=== PATIENT | male | born 1970 | race African-American/Black ===

== ENCOUNTER 2016-07-20 17:55 | Observation (INO) | payer MEDICAID, OTHER ==
[~2016-07-20] VITALS: Ht 180.3 cm; Wt 98.4 kg
[2016-07-20] MEDS ORDERED: FURO40TA5 PO (18:01)
[2016-07-20] MEDS ORDERED: ISOS30TA6 PO (18:01)
[2016-07-20] MEDS ORDERED: TAMS0.4C31 PO (18:01)
[2016-07-20] MEDS ORDERED: HYDR-4133 PO (18:01)
[2016-07-20] MEDS ORDERED: LISI10TA5 PO (18:01)
[2016-07-20 18:40] LABS: BASOPHILS % 0.7 % (0.0-2.0); HEMATOCRIT. 34.8 % (42.0-52.0); HEMOGLOBIN. 11.4 g/dL (14.0-18.0); LYMPHOCYTES % 21.6 % (20.0-50.0); MEAN CORPUSCULAR HEMOGLOBIN 27.8 pg (28.0-32.0); MEAN CORPUSCULAR HGB CONC 32.8 g/dL (31.0-37.0); MEAN CORPUSCULAR VOLUME 84.9 fL (80.0-94.0); MONOCYTES % 7.9 % (2.0-8.0); NEUTROPHILS % 63.8 % (40.0-76.0); PLATELET 140 x1000/uL (130-400); RED CELL DISTRIBUTION WIDTH 16.1 % (11.6-14.6); WHITE BLOOD COUNT 4.3 x1000/uL (4.5-11.0)
[2016-07-20 18:45] LABS: INR 1.1; PROTHROMBIN TIME 11.3 sec
[2016-07-20 18:54] LABS: TROPONIN I < 0.02 ng/mL (0.00-0.04)
[2016-07-20 18:55] LABS: ALANINE AMINOTRANSFERASE 10 IU/L (13-61); ALBUMIN 3.7 g/dL (3.4-5.0); ANION GAP 17; CARBON DIOXIDE 30 mEq/L (21-32); CHLORIDE 99 mEq/L (98-107); INDEX HEMOLYSI 1 (1-3); INDEX ICTERIC 1 (1-4); INDEX LIPEMIC 2 (1-3); MAGNESIUM 2.5 mg/dL (1.8-2.4); UREA NITROGEN BLOOD 46 mg/dL (7-21); eGFR 6 mL/min (>60)
[2016-07-20 18:56] LABS: NT PRO B-TYPE NATRIURETIC PEP 1395 pg/mL (5-125)
[2016-07-20] MEDS ORDERED: SODIUM POLYSTYRENE SULFONATE 15 G/60 ML BOT PO NR (20:00)
[2016-07-21] VITALS (7 sets, daily range): BP systolic 105–124; BP diastolic 68–86
[2016-07-21 00:39] LABS: *AMPHETAMINES SCREEN URINE NEGATIVE (NEGATIVE); *BARBITURATES SCREEN URINE NEGATIVE (NEGATIVE); *BENZODIAZEPINES SCREEN URINE NEGATIVE (NEGATIVE); *COCAINE SCREEN URINE NEGATIVE (NEGATIVE); CANNABINOID URINE SCREEN NEGATIVE (NEGATIVE); ECSTASY MDMA SCREEN URINE NEGATIVE (NEGATIVE); METHADONE URINE SCREEN NEGATIVE (NEGATIVE); OPIATES URINE SCREEN NEGATIVE (NEGATIVE); PHENCYCLIDINE URINE SCREEN NEGATIVE (NEGATIVE)
[2016-07-21] MEDS ORDERED: ACETAMINOPHEN 325MG TABLET PO PRN (02:00)
[2016-07-21] MEDS ORDERED: BENA20TA3 PO (02:08)
[2016-07-21 03:38] LABS: CREATINE KINASE 87 IU/L (39-308); CREATINE KINASE MB FRACTION < 0.5 ng/mL (0.5-3.6); INDEX HEMOLYSI 2 (1-3); TROPONIN I < 0.02 ng/mL (0.00-0.04)
[2016-07-21] MEDS ORDERED: HEPARIN 5000 UNITS/ML VIAL SUBCUT SCH (09:00)
[2016-07-21] MEDS ORDERED: ISOSORBIDE MONONITRATE 60MG TABLET SR 24HR PO SCH (09:00)
[2016-07-21] MEDS ORDERED: TAMSULOSIN HCL 0.4MG SR CAPSULE PO SCH (09:00)
[2016-07-21] MEDS ORDERED: FUROSEMIDE 40MG TABLET PO SCH (09:00)
[2016-07-21] MEDS ORDERED: METOPROLOL TARTRATE 25MG TABLET PO SCH (09:00)
[2016-07-21] MEDS ORDERED: HYDRALAZINE HCL 50MG TABLET PO SCH (09:00)
[2016-07-21] MEDS ORDERED: BENAZEPRIL 20MG TABLET PO SCH (09:00)
[2016-07-21 11:03] LABS: CREATINE KINASE 88 IU/L (39-308); CREATINE KINASE MB FRACTION < 0.5 ng/mL (0.5-3.6); INDEX HEMOLYSI 1 (1-3); TROPONIN I < 0.02 ng/mL (0.00-0.04)
[2016-07-21 18:33] LABS: CREATINE KINASE 91 IU/L (39-308); CREATINE KINASE MB FRACTION < 0.5 ng/mL (0.5-3.6); INDEX HEMOLYSI 1 (1-3); TROPONIN I < 0.02 ng/mL (0.00-0.04)
== END 2016-07-21 21:30 | disposition home or self-care (01) ==
LOC: ER 17:55 → INTOOBSV 20:10 → 7WST 20:10
PROVIDERS: ADMIT Internal Medicine; ATTEND Internal Medicine
DX: I13.2 Hypertensive heart and chronic kidney disease with heart failure and with stage 5 chronic kidney disease, or end stage renal disease (principal); T82.897A Other specified complication of cardiac prosthetic devices, implants and grafts, initial encounter; I25.10 Atherosclerotic heart disease of native coronary artery without angina pectoris; I50.22 Chronic systolic (congestive) heart failure; D64.9 Anemia, unspecified; E87.5 Hyperkalemia; I42.9 Cardiomyopathy, unspecified; I27.2 Other secondary pulmonary hypertension; Z95.810 Presence of automatic (implantable) cardiac defibrillator; Z99.2 Dependence on renal dialysis; Z95.0 Presence of cardiac pacemaker; Y71.2 Prosthetic and other implants, materials and accessory cardiovascular devices associated with adverse incidents; Y92.89 Other specified places as the place of occurrence of the external cause; Y93.89 Activity, other specified; Y99.8 Other external cause status
CPT/HCPCS: 36415; 71010; 80053; 80305; 82550; 82553; 83735; 83880; 84484; 85025; 85610; 93005; 96372; 99285; G0378; J1644; J7030

== ENCOUNTER 2019-06-10 20:27 | Inpatient (IN) | payer MEDICARE, OTHER ==
[~2019-06-10] VITALS: Ht 173.5 cm; Wt 90.7 kg
[~2019-06-10 20:27] MED LIST: BENA20TA10 PO; FURO40TA5 PO; HYDR-4133 PO; ISOS30TA6 PO; TAMS0.4C31 PO
[2019-06-11] VITALS (71 sets, daily range): BP systolic 93–196; BP diastolic 46–120
[2019-06-11] MEDS ORDERED: IPRATROPIUM BROMIDE (0.02%) 0.5MG/2.5ML NEB HHN STA (00:55)
[2019-06-11] MEDS ORDERED: MORPHINE SULFATE 4 MG/ML CPJ (NOT FOR IM USE) IV STA (00:55)
[2019-06-11] MEDS ORDERED: ALBUTEROL (0.083%) 2.5MG/3ML NEB HHN STA (00:55)
[2019-06-11] MEDS ORDERED: ONDANSETRON HCL 4MG/2ML INJ IV ONE (01:00)
[2019-06-11] MEDS ORDERED: HYDRALAZINE 20MG/ML VIAL IV ONE (01:15)
[2019-06-11] MEDS ORDERED: LORAZEPAM 2MG/ML CPJ ONE ×2 (01:29→01:41)
[2019-06-11] MEDS ORDERED: PROPOFOL 10MG/ML 100ML 100 ML IV SCH (01:30)
[2019-06-11] MEDS ORDERED: LORAZEPAM 2MG/ML CPJ IV ONE ×2 (01:30→01:45)
[2019-06-11] MEDS ORDERED: NITROGLYCERIN 50MG PREMIX 250 ML IV ONE ×2 (01:40→01:45)
[2019-06-11 02:17] LABS: BG BASE EXCESS -8.6 mmol/L (-2.0-2.0); BG CARBOXYHEMOGLOBIN 0.4 % (0.5-1.5); BG DEOXYHEMOGLOBIN 29.7 % (0.0-5.0); BG FRACTION INSPIRED OXYGEN 100; BG HCO3 ACT 20.4 mmol/L (22.0-26.0); BG METHEMOGLOBIN 0.3 % (0.0-1.5); BG OXYGEN SATURATION 70.1 % (92.0-98.5); BG OXYHEMOGLOBIN 69.6 % (94.0-97.0); BG PCO2 57.2 mmHg (35.0-45.0); BG PH 7.171 (7.350-7.450); BG PO2 46.3 mmHg (75.0-100.0); BG SAMPLE SITE RIGHT RADIAL; BG TIDAL VOLUME(mL) 550 mL; BG TOTAL HEMOGLOBIN 13.6 g/dL (12.0-18.0); BG VENT MODE VENT - A/C; BG VENT RATE 14 set
[2019-06-11 02:54] LABS: HEMATOCRIT. 36.9 % (42.0-52.0); HEMOGLOBIN. 12.2 g/dL (14.0-18.0); MEAN CORPUSCULAR HEMOGLOBIN 26.3 pg (28.0-32.0); MEAN CORPUSCULAR VOLUME 79.3 fL (80.0-94.0); MEAN PLATELET VOLUME 9.6 fl (7.4-10.4); PLATELET 162 x1000/uL (130-400); RED BLOOD CELL COUNT 4.66 mill/uL (4.7-6.1); RED CELL DISTRIBUTION WIDTH 17.4 % (11.6-14.6)
[2019-06-11] MEDS ORDERED: LEVOFLOXACIN 500MG PREMIX 100 ML IV SCH (03:00)
[2019-06-11 03:07] LABS: CHLORIDE 97 mEq/L (98-107)
[2019-06-11] MEDS ORDERED: ASPIRIN 300MG SUPP PR ONE (03:30)
[2019-06-11] MEDS ORDERED: MIDAZOLAM HCL 50 MG in DEXTROSE 5% WATER 40 ML IV ONE (04:45)
[2019-06-11 05:03] LABS: PLATELET ESTIMATE NORMAL
[2019-06-11] MEDS ORDERED: MIDAZOLAM HCL 50 MG in DEXTROSE 5% WATER 40 ML IV SCH (05:30)
[2019-06-11] MEDS: PROPOFOL 10MG/ML 100ML 100 ML IV PRN ×3 (11:44→20:21)
[2019-06-11 12:13] LABS: BG BASE EXCESS 0.8 mmol/L (-2.0-2.0); BG CARBOXYHEMOGLOBIN 0.3 % (0.5-1.5); BG DEOXYHEMOGLOBIN 8.2 % (0.0-5.0); BG FRACTION INSPIRED OXYGEN 100; BG HCO3 ACT 23.5 mmol/L (22.0-26.0); BG METHEMOGLOBIN 0.2 % (0.0-1.5); BG OXYGEN SATURATION 91.8 % (92.0-98.5); BG OXYHEMOGLOBIN 91.3 % (94.0-97.0); BG PCO2 31.7 mmHg (35.0-45.0); BG PH 7.488 (7.350-7.450); BG PO2 59.7 mmHg (75.0-100.0); BG SAMPLE SITE RIGHT BRACHIAL; BG TIDAL VOLUME(mL) 550 mL; BG TOTAL HEMOGLOBIN 12.9 g/dL (12.0-18.0); BG VENT MODE VENT - A/C; BG VENT RATE 18 set
[2019-06-11] MEDS ORDERED: IPRATROPIUM/ALBUTEROL 0.5-3(2.5)MG/3ML NEB HHN PRN (16:00)
[2019-06-11] MEDS: CARVEDILOL 12.5MG TABLET PO SCH ×2 (16:30→20:20)
[2019-06-11] MEDS: ENOXAPARIN 40MG/0.4ML SYR SUBCUT SCH (16:30)
[2019-06-11] MEDS ORDERED: NITROGLYCERIN 50MG PREMIX 250 ML IV PRN (20:00)
[2019-06-11] MEDS: IPRATROPIUM BROMIDE (0.02%) 0.5MG/2.5ML NEB HHN SCH (20:25)
[2019-06-11] MEDS ORDERED: ACETAMINOPHEN 650MG SUPP PR PRN (20:45)
[2019-06-11] MEDS: NITROGLYCERIN 50MG PREMIX 250 ML IV PRN (20:53)
[2019-06-12] VITALS (72 sets, daily range): BP systolic 97–209; BP diastolic 50–133
[2019-06-12] MEDS: IPRATROPIUM BROMIDE (0.02%) 0.5MG/2.5ML NEB HHN SCH ×7 (00:12→23:51)
[2019-06-12 05:51] LABS: BASOPHILS % 0.5 % (0.0-2.0); EOSINOPHILS % 0.3 % (0.0-5.0); HEMATOCRIT. 30.5 % (42.0-52.0); HEMOGLOBIN. 10.3 g/dL (14.0-18.0); LYMPHOCYTES % 18.8 % (20.0-50.0); MEAN CORPUSCULAR HEMOGLOBIN 26.6 pg (28.0-32.0); MEAN CORPUSCULAR VOLUME 78.5 fL (80.0-94.0); MEAN PLATELET VOLUME 9.9 fl (7.4-10.4); MONOCYTES % 9.3 % (2.0-8.0); NEUTROPHILS % 71.1 % (40.0-76.0); PLATELET 166 x1000/uL (130-400); RED BLOOD CELL COUNT 3.89 mill/uL (4.7-6.1); RED CELL DISTRIBUTION WIDTH 17.7 % (11.6-14.6)
[2019-06-12] MEDS: PANTOPRAZOLE SODIUM 40 MG/VIAL IV SCH (08:16)
[2019-06-12] MEDS: CARVEDILOL 12.5MG TABLET PO SCH ×2 (08:16→21:00)
[2019-06-12] MEDS: PROPOFOL 10MG/ML 100ML 100 ML IV PRN ×4 (08:19→22:36)
[2019-06-12 08:30] LABS: BG BASE EXCESS -2.7 mmol/L (-2.0-2.0); BG CARBOXYHEMOGLOBIN 0.3 % (0.5-1.5); BG DEOXYHEMOGLOBIN 1.2 % (0.0-5.0); BG FRACTION INSPIRED OXYGEN 100; BG HCO3 ACT 21.6 mmol/L (22.0-26.0); BG METHEMOGLOBIN 0.3 % (0.0-1.5); BG OXYGEN SATURATION 98.8 % (92.0-98.5); BG OXYHEMOGLOBIN 98.2 % (94.0-97.0); BG PCO2 35.9 mmHg (35.0-45.0); BG PH 7.398 (7.350-7.450); BG PO2 185.1 mmHg (75.0-100.0); BG SAMPLE SITE RIGHT RADIAL; BG TIDAL VOLUME(mL) 550 mL; BG TOTAL HEMOGLOBIN 10.3 g/dL (12.0-18.0); BG VENT MODE VENT - A/C; BG VENT RATE 18 set
[2019-06-12] MEDS ORDERED: SODIUM BICARBONATE 8.4% 1 MEQ/ML 50ML SYR IV NR (08:55)
[2019-06-12] MEDS ORDERED: DEXTROSE 50% WATER 50ML SYRINGE IV NR (08:55)
[2019-06-12] MEDS ORDERED: INSULIN REGULAR (HUMULIN R) 300UNITS/3ML IV NR (09:04)
[2019-06-12] MEDS: HYDRALAZINE HCL 50MG TABLET PO SCH ×2 (09:13→17:51)
[2019-06-12] MEDS: FENTANYL CITRATE/PF 500 MCG in SODIUM CHLORIDE 0.9% 40 ML IV PRN ×2 (11:52→20:34)
[2019-06-12] MEDS: HYDRALAZINE 20MG/ML VIAL IV PRN (15:36)
[2019-06-12] MEDS: ENOXAPARIN 40MG/0.4ML SYR SUBCUT SCH (17:51)
[2019-06-13] VITALS (45 sets, daily range): BP systolic 92–213; BP diastolic 51–126
[2019-06-13] MEDS: HYDRALAZINE HCL 50MG TABLET PO SCH ×3 (01:16→17:00)
[2019-06-13] MEDS: FENTANYL CITRATE/PF 500 MCG in SODIUM CHLORIDE 0.9% 40 ML IV PRN ×4 (01:16→18:53)
[2019-06-13] MEDS: IPRATROPIUM BROMIDE (0.02%) 0.5MG/2.5ML NEB HHN SCH ×2 (03:31→08:31)
[2019-06-13] MEDS: PROPOFOL 10MG/ML 100ML 100 ML IV PRN (05:21)
[2019-06-13 05:57] LABS: BASOPHILS % 0.6 % (0.0-2.0); EOSINOPHILS % 3.5 % (0.0-5.0); HEMATOCRIT. 30.7 % (42.0-52.0); HEMOGLOBIN. 10.3 g/dL (14.0-18.0); LYMPHOCYTES % 14.3 % (20.0-50.0); MEAN CORPUSCULAR HEMOGLOBIN 26.4 pg (28.0-32.0); MEAN CORPUSCULAR VOLUME 78.6 fL (80.0-94.0); MEAN PLATELET VOLUME 9.7 fl (7.4-10.4); MONOCYTES % 9.3 % (2.0-8.0); NEUTROPHILS % 72.3 % (40.0-76.0); PLATELET 166 x1000/uL (130-400); RED BLOOD CELL COUNT 3.91 mill/uL (4.7-6.1); RED CELL DISTRIBUTION WIDTH 17.5 % (11.6-14.6)
[2019-06-13] MEDS: HYDRALAZINE 20MG/ML VIAL IV PRN (06:15)
[2019-06-13] MEDS: NITROGLYCERIN 50MG PREMIX 250 ML IV PRN (06:55)
[2019-06-13 08:11] LABS: BG CARBOXYHEMOGLOBIN 0.6 % (0.5-1.5); BG DEOXYHEMOGLOBIN 7.8 % (0.0-5.0); BG FRACTION INSPIRED OXYGEN 45; BG HCO3 ACT 21.8 mmol/L (22.0-26.0); BG METHEMOGLOBIN 0.3 % (0.0-1.5); BG OXYGEN SATURATION 92.1 % (92.0-98.5); BG OXYHEMOGLOBIN 91.3 % (94.0-97.0); BG PCO2 38.3 mmHg (35.0-45.0); BG PH 7.374 (7.350-7.450); BG PO2 66.7 mmHg (75.0-100.0); BG SAMPLE SITE RIGHT BRACHIAL; BG TIDAL VOLUME(mL) 550 mL; BG TOTAL HEMOGLOBIN 13.2 g/dL (12.0-18.0); BG VENT MODE VENT - A/C; BG VENT RATE 18 set
[2019-06-13] MEDS: MIDAZOLAM HCL 50 MG in DEXTROSE 5% WATER 40 ML IV PRN ×3 (08:44→14:34)
[2019-06-13] MEDS: PANTOPRAZOLE SODIUM 40 MG/VIAL IV SCH (09:03)
[2019-06-13] MEDS: CARVEDILOL 12.5MG TABLET PO SCH ×2 (09:04→21:26)
[2019-06-13] MEDS: IPRATROPIUM/ALBUTEROL 0.5-3(2.5)MG/3ML NEB HHN SCH ×3 (12:35→20:41)
[2019-06-13] MEDS ORDERED: SODIUM POLYSTYRENE SULFONATE 15 G/60 ML BOT PO NR (13:00)
[2019-06-13] MEDS: ENOXAPARIN 40MG/0.4ML SYR SUBCUT SCH (17:00)
[2019-06-14] VITALS (47 sets, daily range): BP systolic 115–183; BP diastolic 66–167
[2019-06-14] MEDS: IPRATROPIUM/ALBUTEROL 0.5-3(2.5)MG/3ML NEB HHN SCH ×6 (00:05→19:52)
[2019-06-14] MEDS: MIDAZOLAM HCL 50 MG in DEXTROSE 5% WATER 40 ML IV PRN ×2 (00:24→06:24)
[2019-06-14] MEDS: FENTANYL CITRATE/PF 500 MCG in SODIUM CHLORIDE 0.9% 40 ML IV PRN ×2 (02:29→10:54)
[2019-06-14] MEDS: HYDRALAZINE HCL 50MG TABLET PO SCH ×3 (02:32→17:34)
[2019-06-14 06:42] LABS: BASOPHILS % 0.4 % (0.0-2.0); EOSINOPHILS % 5.9 % (0.0-5.0); HEMATOCRIT. 30.2 % (42.0-52.0); HEMOGLOBIN. 10.2 g/dL (14.0-18.0); LYMPHOCYTES % 14.6 % (20.0-50.0); MEAN CORPUSCULAR HEMOGLOBIN 26.6 pg (28.0-32.0); MEAN CORPUSCULAR VOLUME 78.8 fL (80.0-94.0); MEAN PLATELET VOLUME 9.5 fl (7.4-10.4); MONOCYTES % 7.9 % (2.0-8.0); NEUTROPHILS % 71.2 % (40.0-76.0); PLATELET 173 x1000/uL (130-400); RED BLOOD CELL COUNT 3.83 mill/uL (4.7-6.1)
[2019-06-14] MEDS: PANTOPRAZOLE SODIUM 40 MG/VIAL IV SCH (08:58)
[2019-06-14] MEDS: CARVEDILOL 12.5MG TABLET PO SCH ×2 (08:58→21:16)
[2019-06-14 09:00] LABS: BG BASE EXCESS -2.6 mmol/L (-2.0-2.0); BG CARBOXYHEMOGLOBIN 0.3 % (0.5-1.5); BG DEOXYHEMOGLOBIN 7.2 % (0.0-5.0); BG FRACTION INSPIRED OXYGEN 40; BG HCO3 ACT 22.5 mmol/L (22.0-26.0); BG METHEMOGLOBIN 0.2 % (0.0-1.5); BG OXYGEN SATURATION 92.8 % (92.0-98.5); BG OXYHEMOGLOBIN 92.3 % (94.0-97.0); BG PCO2 40.1 mmHg (35.0-45.0); BG PH 7.367 (7.350-7.450); BG PO2 71.9 mmHg (75.0-100.0); BG SAMPLE SITE RIGHT RADIAL; BG TIDAL VOLUME(mL) 550 mL; BG TOTAL HEMOGLOBIN 10.2 g/dL (12.0-18.0); BG VENT MODE VENT - A/C; BG VENT RATE 18 set
[2019-06-14] MEDS: MIDAZOLAM HCL 100 MG in DEXT 5% WATER 80 ML IV PRN (15:11)
[2019-06-14] MEDS: CEFTRIAXONE 1 G PREMIX 50 ML IV SCH (17:33)
[2019-06-14] MEDS: ENOXAPARIN 40MG/0.4ML SYR SUBCUT SCH (17:33)
[2019-06-14] MEDS: FENTANYL CITRATE/PF 1,000 MCG in SODIUM CHLORIDE 0.9% 80 ML IV PRN (17:35)
[2019-06-15] VITALS (43 sets, daily range): BP systolic 105–188; BP diastolic 58–116
[2019-06-15] MEDS: IPRATROPIUM/ALBUTEROL 0.5-3(2.5)MG/3ML NEB HHN SCH ×6 (00:08→20:15)
[2019-06-15] MEDS: HYDRALAZINE HCL 50MG TABLET PO SCH ×3 (03:38→18:20)
[2019-06-15] MEDS: FENTANYL CITRATE/PF 1,000 MCG in SODIUM CHLORIDE 0.9% 80 ML IV PRN ×2 (03:58→23:08)
[2019-06-15 05:57] LABS: BASOPHILS % 0.6 % (0.0-2.0); EOSINOPHILS % 7.6 % (0.0-5.0); HEMATOCRIT. 30.1 % (42.0-52.0); HEMOGLOBIN. 10.3 g/dL (14.0-18.0); LYMPHOCYTES % 13.6 % (20.0-50.0); MEAN CORPUSCULAR HEMOGLOBIN 26.8 pg (28.0-32.0); MEAN CORPUSCULAR VOLUME 78.4 fL (80.0-94.0); MEAN PLATELET VOLUME 8.9 fl (7.4-10.4); MONOCYTES % 9.8 % (2.0-8.0); NEUTROPHILS % 68.4 % (40.0-76.0); PLATELET 169 x1000/uL (130-400); RED BLOOD CELL COUNT 3.84 mill/uL (4.7-6.1); RED CELL DISTRIBUTION WIDTH 17.2 % (11.6-14.6)
[2019-06-15] MEDS: MIDAZOLAM HCL 100 MG in DEXT 5% WATER 80 ML IV PRN ×2 (08:42→22:36)
[2019-06-15 08:45] LABS: BG FRACTION INSPIRED OXYGEN 40; BG HCO3 ACT 24.3 mmol/L (22.0-26.0); BG METHEMOGLOBIN 0.3 % (0.0-1.5); BG OXYHEMOGLOBIN 90.7 % (94.0-97.0); BG PCO2 43.1 mmHg (35.0-45.0); BG PH 7.369 (7.350-7.450); BG PO2 65.5 mmHg (75.0-100.0); BG SAMPLE SITE RIGHT RADIAL; BG TIDAL VOLUME(mL) 500 mL; BG TOTAL HEMOGLOBIN 10.5 g/dL (12.0-18.0); BG VENT MODE VENT - A/C; BG VENT RATE 18 set
[2019-06-15] MEDS: PANTOPRAZOLE SODIUM 40 MG/VIAL IV SCH (09:22)
[2019-06-15] MEDS: CARVEDILOL 12.5MG TABLET PO SCH ×2 (09:22→21:38)
[2019-06-15] MEDS: CEFTRIAXONE 1 G PREMIX 50 ML IV SCH (14:28)
[2019-06-15] MEDS: LOSARTAN POTASSIUM 50 MG TABLET PO SCH (17:23)
[2019-06-15] MEDS: ENOXAPARIN 40MG/0.4ML SYR SUBCUT SCH (17:25)
[2019-06-15] MEDS: METHYLPREDNISOLONE SOD SUCC 40 MG/ML VIAL IV SCH (18:21)
[2019-06-15] MEDS: LACTULOSE 20G/30ML UDC NG SCH (21:39)
[2019-06-16] VITALS (47 sets, daily range): BP systolic 116–179; BP diastolic 61–116
[2019-06-16] MEDS: IPRATROPIUM/ALBUTEROL 0.5-3(2.5)MG/3ML NEB HHN SCH ×6 (00:36→20:13)
[2019-06-16 06:06] LABS: HEMATOCRIT. 29.3 % (42.0-52.0); HEMOGLOBIN. 9.9 g/dL (14.0-18.0); MEAN CORPUSCULAR HEMOGLOBIN 26.6 pg (28.0-32.0); MEAN CORPUSCULAR VOLUME 78.5 fL (80.0-94.0); MEAN PLATELET VOLUME 8.9 fl (7.4-10.4); PLATELET 191 x1000/uL (130-400); RED BLOOD CELL COUNT 3.74 mill/uL (4.7-6.1); RED CELL DISTRIBUTION WIDTH 17.6 % (11.6-14.6)
[2019-06-16] MEDS: HYDRALAZINE HCL 50MG TABLET PO SCH ×3 (06:47→17:14)
[2019-06-16 08:12] LABS: BG BASE EXCESS -2.7 mmol/L (-2.0-2.0); BG CARBOXYHEMOGLOBIN 0.3 % (0.5-1.5); BG DEOXYHEMOGLOBIN 7.7 % (0.0-5.0); BG HCO3 ACT 22.5 mmol/L (22.0-26.0); BG METHEMOGLOBIN 0.1 % (0.0-1.5); BG OXYGEN SATURATION 92.3 % (92.0-98.5); BG OXYHEMOGLOBIN 91.9 % (94.0-97.0); BG PCO2 40.6 mmHg (35.0-45.0); BG PH 7.361 (7.350-7.450); BG PO2 69.3 mmHg (75.0-100.0); BG SAMPLE SITE RIGHT RADIAL; BG TIDAL VOLUME(mL) 550 mL; BG TOTAL HEMOGLOBIN 10.4 g/dL (12.0-18.0); BG VENT MODE VENT - A/C; BG VENT RATE 10 set
[2019-06-16] MEDS: LACTULOSE 20G/30ML UDC NG SCH (09:52)
[2019-06-16] MEDS: PANTOPRAZOLE SODIUM 40 MG/VIAL IV SCH (09:52)
[2019-06-16] MEDS: METHYLPREDNISOLONE SOD SUCC 40 MG/ML VIAL IV SCH (09:52)
[2019-06-16] MEDS: LOSARTAN POTASSIUM 50 MG TABLET PO SCH (09:53)
[2019-06-16] MEDS: CARVEDILOL 12.5MG TABLET PO SCH ×2 (09:53→20:25)
[2019-06-16] MEDS: FENTANYL CITRATE/PF 1,000 MCG in SODIUM CHLORIDE 0.9% 80 ML IV PRN (11:31)
[2019-06-16 12:03] LABS: PLATELET ESTIMATE NORMAL
[2019-06-16] MEDS: CEFTRIAXONE 1 G PREMIX 50 ML IV SCH (15:08)
[2019-06-16] MEDS: MIDAZOLAM HCL 100 MG in DEXT 5% WATER 80 ML IV PRN (16:59)
[2019-06-16] MEDS: ENOXAPARIN 40MG/0.4ML SYR SUBCUT SCH (17:10)
[2019-06-17] VITALS (39 sets, daily range): BP systolic 111–211; BP diastolic 45–145
[2019-06-17] MEDS: IPRATROPIUM/ALBUTEROL 0.5-3(2.5)MG/3ML NEB HHN SCH ×7 (00:19→23:55)
[2019-06-17] MEDS: HYDRALAZINE HCL 50MG TABLET PO SCH ×2 (02:51→09:48)
[2019-06-17] MEDS: FENTANYL CITRATE/PF 1,000 MCG in SODIUM CHLORIDE 0.9% 80 ML IV PRN (03:50)
[2019-06-17 05:31] LABS: HEMATOCRIT. 31.2 % (42.0-52.0); HEMOGLOBIN. 10.4 g/dL (14.0-18.0); MEAN CORPUSCULAR HEMOGLOBIN 26.2 pg (28.0-32.0); MEAN CORPUSCULAR VOLUME 78.9 fL (80.0-94.0); MEAN PLATELET VOLUME 8.7 fl (7.4-10.4); PLATELET 226 x1000/uL (130-400); RED BLOOD CELL COUNT 3.95 mill/uL (4.7-6.1); RED CELL DISTRIBUTION WIDTH 17.5 % (11.6-14.6)
[2019-06-17 07:26] LABS: BG BASE EXCESS -0.8 mmol/L (-2.0-2.0); BG CARBOXYHEMOGLOBIN 0.3 % (0.5-1.5); BG DEOXYHEMOGLOBIN 2.9 % (0.0-5.0); BG FRACTION INSPIRED OXYGEN 50; BG HCO3 ACT 23.7 mmol/L (22.0-26.0); BG METHEMOGLOBIN 0.3 % (0.0-1.5); BG OXYGEN SATURATION 97.1 % (92.0-98.5); BG OXYHEMOGLOBIN 96.5 % (94.0-97.0); BG PCO2 38.5 mmHg (35.0-45.0); BG PH 7.407 (7.350-7.450); BG PO2 101.5 mmHg (75.0-100.0); BG SAMPLE SITE RIGHT RADIAL; BG TIDAL VOLUME(mL) 500 mL; BG TOTAL HEMOGLOBIN 11.5 g/dL (12.0-18.0); BG VENT MODE VENT - A/C; BG VENT RATE 18 set
[2019-06-17] MEDS: PANTOPRAZOLE SODIUM 40 MG/VIAL IV SCH (08:24)
[2019-06-17] MEDS: CARVEDILOL 12.5MG TABLET PO SCH ×2 (08:24→20:59)
[2019-06-17] MEDS: LOSARTAN POTASSIUM 50 MG TABLET PO SCH (08:24)
[2019-06-17] MEDS: LACTULOSE 20G/30ML UDC NG SCH (08:24)
[2019-06-17] MEDS: METHYLPREDNISOLONE SOD SUCC 40 MG/ML VIAL IV SCH (08:25)
[2019-06-17] MEDS: LORAZEPAM 2MG/ML CPJ IV PRN ×4 (09:23→22:11)
[2019-06-17 10:25] LABS: PLATELET ESTIMATE NORMAL
[2019-06-17 10:40] LABS: BG BASE EXCESS -1.4 mmol/L (-2.0-2.0); BG DEOXYHEMOGLOBIN 6.8 % (0.0-5.0); BG FRACTION INSPIRED OXYGEN 50; BG HCO3 ACT 24.2 mmol/L (22.0-26.0); BG METHEMOGLOBIN 0.2 % (0.0-1.5); BG OXYGEN SATURATION 93.2 % (92.0-98.5); BG PCO2 44.1 mmHg (35.0-45.0); BG PH 7.357 (7.350-7.450); BG PO2 73.1 mmHg (75.0-100.0); BG PRESSURE SUPPORT 8; BG SAMPLE SITE RIGHT RADIAL; BG TOTAL HEMOGLOBIN 11.7 g/dL (12.0-18.0); BG VENT MODE VENT - CPAP
[2019-06-17] MEDS: HYDRALAZINE 20MG/ML VIAL IV PRN ×3 (10:44→23:01)
[2019-06-17] MEDS: HYDRALAZINE HCL 100MG TABLET PO SCH ×2 (13:38→17:16)
[2019-06-17] MEDS: CEFTRIAXONE 1 G PREMIX 50 ML IV SCH (13:47)
[2019-06-17] MEDS: ENOXAPARIN 40MG/0.4ML SYR SUBCUT SCH (17:17)
[2019-06-17] MEDS: RISPERIDONE 0.5MG TABLET PO SCH (23:01)
[2019-06-17] MEDS: MORPHINE SULFATE 2 MG/ML CPJ (NOT FOR IM USE) IV PRN (23:02)
[2019-06-18] VITALS (57 sets, daily range): BP systolic 114–210; BP diastolic 49–141
[2019-06-18] MEDS: CLONIDINE 0.1MG TABLET PO PRN ×3 (00:44→09:08)
[2019-06-18] MEDS: HYDRALAZINE HCL 100MG TABLET PO SCH ×3 (01:02→14:37)
[2019-06-18] MEDS: MORPHINE SULFATE 2 MG/ML CPJ (NOT FOR IM USE) IV PRN ×5 (01:09→16:32)
[2019-06-18] MEDS: LORAZEPAM 2MG/ML CPJ IV PRN ×3 (02:44→16:32)
[2019-06-18] MEDS: HYDRALAZINE 20MG/ML VIAL IV PRN ×3 (03:27→14:37)
[2019-06-18] MEDS: IPRATROPIUM/ALBUTEROL 0.5-3(2.5)MG/3ML NEB HHN SCH ×5 (04:20→20:30)
[2019-06-18 06:26] LABS: BASOPHILS % 0.6 % (0.0-2.0); EOSINOPHILS % 1.4 % (0.0-5.0); HEMOGLOBIN. 12.2 g/dL (14.0-18.0); LYMPHOCYTES % 9.3 % (20.0-50.0); MEAN CORPUSCULAR HEMOGLOBIN 26.2 pg (28.0-32.0); MEAN CORPUSCULAR VOLUME 79.8 fL (80.0-94.0); MEAN PLATELET VOLUME 8.2 fl (7.4-10.4); MONOCYTES % 13.7 % (2.0-8.0); PLATELET 215 x1000/uL (130-400); RED BLOOD CELL COUNT 4.64 mill/uL (4.7-6.1); RED CELL DISTRIBUTION WIDTH 17.6 % (11.6-14.6)
[2019-06-18] MEDS: METHYLPREDNISOLONE SOD SUCC 40 MG/ML VIAL IV SCH (09:07)
[2019-06-18] MEDS: LACTULOSE 20G/30ML UDC NG SCH (09:07)
[2019-06-18] MEDS: PANTOPRAZOLE SODIUM 40 MG/VIAL IV SCH (09:07)
[2019-06-18] MEDS: CARVEDILOL 12.5MG TABLET PO SCH ×2 (09:08→21:00)
[2019-06-18] MEDS: CEFTRIAXONE 1 G PREMIX 50 ML IV SCH (14:37)
[2019-06-18] MEDS ORDERED: ISOSORBIDE MONONITRATE 60MG TABLET SR 24HR PO SCH (16:00)
[2019-06-18] MEDS: DILTIAZEM HCL 120MG CAPSULE CD 24HR PO SCH (16:12)
[2019-06-18] MEDS: ENOXAPARIN 40MG/0.4ML SYR SUBCUT SCH (16:18)
[2019-06-18] MEDS: RISPERIDONE 0.5MG TABLET PO SCH (21:00)
[2019-06-18] MEDS ORDERED: HALOPERIDOL LACTATE 5MG/ML VIAL IM PRN (22:30)
[2019-06-19] VITALS (65 sets, daily range): BP systolic 91–155; BP diastolic 61–108
[2019-06-19] MEDS: IPRATROPIUM/ALBUTEROL 0.5-3(2.5)MG/3ML NEB HHN SCH ×6 (00:19→19:59)
[2019-06-19] MEDS: HYDRALAZINE HCL 100MG TABLET PO SCH ×3 (02:00→17:37)
[2019-06-19 05:34] LABS: HEMATOCRIT. 37.3 % (42.0-52.0); HEMOGLOBIN. 12.6 g/dL (14.0-18.0); MEAN CORPUSCULAR HEMOGLOBIN 26.6 pg (28.0-32.0); MEAN CORPUSCULAR VOLUME 78.9 fL (80.0-94.0); MEAN PLATELET VOLUME 8.2 fl (7.4-10.4); PLATELET 252 x1000/uL (130-400); RED BLOOD CELL COUNT 4.73 mill/uL (4.7-6.1); RED CELL DISTRIBUTION WIDTH 17.4 % (11.6-14.6)
[2019-06-19 05:55] LABS: PHOSPHORUS 9.8 mg/dL (2.5-4.9)
[2019-06-19 07:58] LABS: PLATELET ESTIMATE NORMAL
[2019-06-19] MEDS: METHYLPREDNISOLONE SOD SUCC 40 MG/ML VIAL IV SCH (08:16)
[2019-06-19] MEDS: PANTOPRAZOLE SODIUM 40 MG/VIAL IV SCH (08:16)
[2019-06-19] MEDS: LACTULOSE 20G/30ML UDC NG SCH (09:00)
[2019-06-19] MEDS: CARVEDILOL 12.5MG TABLET PO SCH ×2 (09:00→20:01)
[2019-06-19] MEDS: DILTIAZEM HCL 120MG CAPSULE CD 24HR PO SCH (09:00)
[2019-06-19 13:20] LABS: ETHANOL BLOOD < 10 mg/dL
[2019-06-19] MEDS: LANTHANUM CARBONATE 500MG CHEW TABLET PO SCH ×2 (13:20→18:14)
[2019-06-19 13:24] LABS: T4 FREE 1.04 ng/dL (0.76-1.46)
[2019-06-19] MEDS: CEFTRIAXONE 1 G PREMIX 50 ML IV SCH (15:06)
[2019-06-19] MEDS: ENOXAPARIN 40MG/0.4ML SYR SUBCUT SCH (16:29)
[2019-06-19] MEDS: RISPERIDONE 0.5MG TABLET PO SCH (20:01)
[2019-06-20] VITALS (43 sets, daily range): BP systolic 101–141; BP diastolic 55–104
[2019-06-20] MEDS: IPRATROPIUM/ALBUTEROL 0.5-3(2.5)MG/3ML NEB HHN SCH ×6 (00:25→20:09)
[2019-06-20] MEDS: HYDRALAZINE HCL 100MG TABLET PO SCH ×3 (02:45→17:52)
[2019-06-20 05:47] LABS: BASOPHILS % 0.9 % (0.0-2.0); EOSINOPHILS % 0.7 % (0.0-5.0); HEMATOCRIT. 39.4 % (42.0-52.0); HEMOGLOBIN. 12.9 g/dL (14.0-18.0); LYMPHOCYTES % 13.5 % (20.0-50.0); MEAN CORPUSCULAR HEMOGLOBIN 26.2 pg (28.0-32.0); MEAN CORPUSCULAR VOLUME 79.9 fL (80.0-94.0); MEAN PLATELET VOLUME 8.6 fl (7.4-10.4); MONOCYTES % 12.2 % (2.0-8.0); NEUTROPHILS % 72.7 % (40.0-76.0); PLATELET 306 x1000/uL (130-400); RED BLOOD CELL COUNT 4.94 mill/uL (4.7-6.1); RED CELL DISTRIBUTION WIDTH 17.8 % (11.6-14.6)
[2019-06-20] MEDS: LANTHANUM CARBONATE 500MG CHEW TABLET PO SCH ×3 (08:20→17:54)
[2019-06-20] MEDS: METHYLPREDNISOLONE SOD SUCC 40 MG/ML VIAL IV SCH (10:50)
[2019-06-20] MEDS: PANTOPRAZOLE SODIUM 40 MG/VIAL IV SCH (10:50)
[2019-06-20] MEDS: LACTULOSE 20G/30ML UDC NG SCH (10:55)
[2019-06-20] MEDS: CARVEDILOL 12.5MG TABLET PO SCH ×2 (10:56→20:32)
[2019-06-20] MEDS: DILTIAZEM HCL 120MG CAPSULE CD 24HR PO SCH (10:57)
[2019-06-20] MEDS: CEFTRIAXONE 1 G PREMIX 50 ML IV SCH (13:19)
[2019-06-20 17:06] LABS: 7-AMINOCLONAZEPAM CONFIRM Negative (.); ALPRAZOLAM CONFIRM Negative (.); CHLORDIAZEPOXIDE CONFIRM Negative (.); CLONAZEPAM CONFIRM Negative (.); DESMETHYLCHLORDIAZEPOXIDE Negative (.); DIAZEPAM CONFIRM Negative (.); FLURAZEPAM CONFIRM Negative (.); MIDAZOLAM CONFIRM Negative (.); OXAZEPAM CONFIRM Negative (.); TEMAZEPAM CONFIRM Negative (.); TRIAZOLAM CONFIRM Negative (.)
[2019-06-20] MEDS: ENOXAPARIN 40MG/0.4ML SYR SUBCUT SCH (17:52)
[2019-06-20] MEDS: RISPERIDONE 0.5MG TABLET PO SCH (20:32)
[2019-06-21] VITALS (12 sets, daily range): BP systolic 109–143; BP diastolic 64–98
[2019-06-21] MEDS: HYDRALAZINE HCL 100MG TABLET PO SCH ×3 (01:26→17:07)
[2019-06-21] MEDS: IPRATROPIUM/ALBUTEROL 0.5-3(2.5)MG/3ML NEB HHN SCH ×5 (01:58→21:25)
[2019-06-21] MEDS: LANTHANUM CARBONATE 500MG CHEW TABLET PO SCH ×3 (07:20→17:08)
[2019-06-21] MEDS: PANTOPRAZOLE SODIUM 40 MG/VIAL IV SCH (08:59)
[2019-06-21] MEDS: ENOXAPARIN 30MG/0.3ML SYR SUBCUT SCH (09:00)
[2019-06-21] MEDS: CARVEDILOL 12.5MG TABLET PO SCH ×2 (09:00→20:22)
[2019-06-21] MEDS: DILTIAZEM HCL 120MG CAPSULE CD 24HR PO SCH (09:01)
[2019-06-21] MEDS: PREDNISONE 20MG TABLET PO SCH (09:01)
[2019-06-21] MEDS: LACTULOSE 20G/30ML UDC NG SCH (09:03)
[2019-06-21 11:28] LABS: BASOPHILS % 0.5 % (0.0-2.0); EOSINOPHILS % 0.4 % (0.0-5.0); HEMATOCRIT. 36.9 % (42.0-52.0); HEMOGLOBIN. 12.1 g/dL (14.0-18.0); LYMPHOCYTES % 10.7 % (20.0-50.0); MEAN CORPUSCULAR HEMOGLOBIN 26.1 pg (28.0-32.0); MEAN CORPUSCULAR VOLUME 79.8 fL (80.0-94.0); MEAN PLATELET VOLUME 8.6 fl (7.4-10.4); MONOCYTES % 8.2 % (2.0-8.0); NEUTROPHILS % 80.2 % (40.0-76.0); PLATELET 290 x1000/uL (130-400); RED BLOOD CELL COUNT 4.62 mill/uL (4.7-6.1); RED CELL DISTRIBUTION WIDTH 17.6 % (11.6-14.6)
[2019-06-21 12:12] LABS: PHOSPHORUS 14.5 mg/dL (2.5-4.9)
[2019-06-21] MEDS: CEFTRIAXONE 1 G PREMIX 50 ML IV SCH (14:12)
[2019-06-21] MEDS: RISPERIDONE 0.5MG TABLET PO SCH (20:21)
[2019-06-22] VITALS (11 sets, daily range): BP systolic 106–157; BP diastolic 60–104
[2019-06-22] MEDS: IPRATROPIUM/ALBUTEROL 0.5-3(2.5)MG/3ML NEB HHN SCH ×6 (00:30→20:03)
[2019-06-22] MEDS: HYDRALAZINE HCL 100MG TABLET PO SCH ×2 (03:06→11:59)
[2019-06-22] MEDS: CLONIDINE 0.1MG TABLET PO PRN (06:22)
[2019-06-22 07:02] LABS: BASOPHILS % 0.8 % (0.0-2.0); EOSINOPHILS % 1.3 % (0.0-5.0); HEMOGLOBIN. 12.6 g/dL (14.0-18.0); LYMPHOCYTES % 14.9 % (20.0-50.0); MEAN CORPUSCULAR HEMOGLOBIN 26.3 pg (28.0-32.0); MEAN CORPUSCULAR VOLUME 79.5 fL (80.0-94.0); MEAN PLATELET VOLUME 8.7 fl (7.4-10.4); MONOCYTES % 10.1 % (2.0-8.0); NEUTROPHILS % 72.9 % (40.0-76.0); PLATELET 301 x1000/uL (130-400); RED BLOOD CELL COUNT 4.77 mill/uL (4.7-6.1); RED CELL DISTRIBUTION WIDTH 17.3 % (11.6-14.6)
[2019-06-22] MEDS: DILTIAZEM HCL 120MG CAPSULE CD 24HR PO SCH (08:01)
[2019-06-22] MEDS: LANTHANUM CARBONATE 500MG CHEW TABLET PO SCH ×2 (08:01→11:59)
[2019-06-22] MEDS: PREDNISONE 20MG TABLET PO SCH (08:02)
[2019-06-22] MEDS: CARVEDILOL 12.5MG TABLET PO SCH ×2 (08:02→20:08)
[2019-06-22] MEDS: LACTULOSE 20G/30ML UDC NG SCH (08:03)
[2019-06-22] MEDS: PANTOPRAZOLE SODIUM 40 MG/VIAL IV SCH (08:03)
[2019-06-22] MEDS: ENOXAPARIN 30MG/0.3ML SYR SUBCUT SCH (08:03)
[2019-06-22 17:06] LABS: BARBITURATE SCREEN Negative ug/mL (Cutoff:0.1); BENZODIAZEPINE SCREEN ++POSITIVE++ ng/mL (Cutoff:20); OPIATES SCREEN Negative ng/mL (Cutoff:5); PHENCYCLIDINE SCREEN Negative ng/mL (Cutoff:8)
[2019-06-22] MEDS: CEFTRIAXONE 1 G PREMIX 50 ML IV SCH (20:08)
[2019-06-22] MEDS: RISPERIDONE 0.5MG TABLET PO SCH (20:09)
[2019-06-23] VITALS (12 sets, daily range): BP systolic 92–136; BP diastolic 58–84
[2019-06-23] MEDS: HYDRALAZINE HCL 100MG TABLET PO SCH ×3 (03:52→18:00)
[2019-06-23] MEDS: IPRATROPIUM/ALBUTEROL 0.5-3(2.5)MG/3ML NEB HHN SCH ×6 (04:20→20:18)
[2019-06-23] MEDS: PREDNISONE 20MG TABLET PO SCH (08:21)
[2019-06-23] MEDS: PANTOPRAZOLE SODIUM 40 MG/VIAL IV SCH (08:22)
[2019-06-23] MEDS: CARVEDILOL 12.5MG TABLET PO SCH ×2 (08:22→22:04)
[2019-06-23] MEDS: DILTIAZEM HCL 120MG CAPSULE CD 24HR PO SCH (09:00)
[2019-06-23 09:39] LABS: BASOPHILS % 0.7 % (0.0-2.0); HEMOGLOBIN. 12.6 g/dL (14.0-18.0); LYMPHOCYTES % 18.8 % (20.0-50.0); MEAN CORPUSCULAR HEMOGLOBIN 26.5 pg (28.0-32.0); MEAN CORPUSCULAR VOLUME 79.9 fL (80.0-94.0); MEAN PLATELET VOLUME 8.8 fl (7.4-10.4); MONOCYTES % 11.1 % (2.0-8.0); NEUTROPHILS % 66.4 % (40.0-76.0); PLATELET 290 x1000/uL (130-400); RED BLOOD CELL COUNT 4.75 mill/uL (4.7-6.1)
[2019-06-23] MEDS: LACTULOSE 20G/30ML UDC NG SCH (09:42)
[2019-06-23] MEDS: ENOXAPARIN 30MG/0.3ML SYR SUBCUT SCH (09:43)
[2019-06-23] MEDS: LANTHANUM CARBONATE 500MG CHEW TABLET PO SCH ×2 (13:28→18:22)
[2019-06-23] MEDS: CEFTRIAXONE 1 G PREMIX 50 ML IV SCH (14:51)
[2019-06-23] MEDS: RISPERIDONE 0.5MG TABLET PO SCH (22:04)
[2019-06-24] VITALS (14 sets, daily range): BP systolic 110–160; BP diastolic 50–118
[2019-06-24] MEDS: IPRATROPIUM/ALBUTEROL 0.5-3(2.5)MG/3ML NEB HHN SCH ×6 (00:28→21:08)
[2019-06-24] MEDS: HYDRALAZINE HCL 100MG TABLET PO SCH ×3 (02:35→17:16)
[2019-06-24 06:27] LABS: BASOPHILS % 0.7 % (0.0-2.0); EOSINOPHILS % 3.5 % (0.0-5.0); HEMATOCRIT. 34.9 % (42.0-52.0); HEMOGLOBIN. 11.8 g/dL (14.0-18.0); LYMPHOCYTES % 23.1 % (20.0-50.0); MEAN CORPUSCULAR HEMOGLOBIN 27.2 pg (28.0-32.0); MEAN CORPUSCULAR VOLUME 80.4 fL (80.0-94.0); MEAN PLATELET VOLUME 8.7 fl (7.4-10.4); MONOCYTES % 11.8 % (2.0-8.0); NEUTROPHILS % 60.9 % (40.0-76.0); PLATELET 210 x1000/uL (130-400); RED BLOOD CELL COUNT 4.34 mill/uL (4.7-6.1); RED CELL DISTRIBUTION WIDTH 17.1 % (11.6-14.6)
[2019-06-24] MEDS ORDERED: ENOXAPARIN 40MG/0.4ML SYR SUBCUT SCH (09:00)
[2019-06-24] MEDS: CARVEDILOL 12.5MG TABLET PO SCH ×2 (09:00→21:52)
[2019-06-24] MEDS: DILTIAZEM HCL 120MG CAPSULE CD 24HR PO SCH (09:43)
[2019-06-24] MEDS: LACTULOSE 20G/30ML UDC NG SCH (09:43)
[2019-06-24] MEDS: PANTOPRAZOLE SODIUM 40 MG/VIAL IV SCH (09:43)
[2019-06-24] MEDS: PREDNISONE 20MG TABLET PO SCH (09:44)
[2019-06-24] MEDS: LANTHANUM CARBONATE 500MG CHEW TABLET PO SCH ×3 (10:01→19:35)
[2019-06-24 13:06] LABS: A/G RATIO 0.6 (0.7-1.7); ALPHA-1-GLOBULIN 0.3 g/dL (0.0-0.4); ALPHA-2-GLOBULIN 1.2 g/dL (0.4-1.0); BETA GLOBULIN 1.5 g/dL (0.7-1.3); GAMMA GLOBULINS 1.7 g/dL (0.4-1.8); GLOBULIN TOTAL 4.7 g/dL (2.2-3.9); M-SPIKE Not Observed g/dL (Not Observed); TOTAL PROTEIN SERUM 7.7 g/dL (6.0-8.5)
[2019-06-24] MEDS: SEVELAMER CARBONATE 800 MG TABLET PO SCH ×2 (13:16→19:36)
[2019-06-24 17:11] LABS: 7-AMINOCLONAZEPAM CONFIRM Negative (.); ALPRAZOLAM CONFIRM Negative (.); BARBITURATE SCREEN Negative ug/mL (Cutoff:0.1); BENZODIAZEPINE SCREEN ++POSITIVE++ ng/mL (Cutoff:20); CHLORDIAZEPOXIDE CONFIRM Negative (.); CLONAZEPAM CONFIRM Negative (.); DESMETHYLCHLORDIAZEPOXIDE Negative (.); DIAZEPAM CONFIRM Negative (.); FLURAZEPAM CONFIRM Negative (.); MIDAZOLAM CONFIRM 7 ng/mL (.); OPIATES SCREEN Negative ng/mL (Cutoff:5); OXAZEPAM CONFIRM Negative (.); PHENCYCLIDINE SCREEN Negative ng/mL (Cutoff:8); TEMAZEPAM CONFIRM Negative (.); TRIAZOLAM CONFIRM Negative (.)
[2019-06-24] MEDS: HYDRALAZINE 20MG/ML VIAL IV PRN (22:13)
== END 2019-06-24 22:25 | DRG 870 ==
LOC: ER 20:27 → EDBEDREQTM 06-11 02:41 → EDBEDREQSVC 06-11 02:41 → CVICU 06-11 03:20 → EDBEDREQ 06-11 03:22 → EDBEDREQTM 06-11 03:22 → ENRESERV 06-11 04:45 → 3WST 06-20 22:58
PROVIDERS: ADMIT Internal Medicine Nephrology; ATTEND Internal Medicine Nephrology
PROC: 5A1955Z Respiratory Ventilation, Greater than 96 Consecutive Hours (ICD-10-PCS; principal; 2019-06-11)
PROC: 0BH17EZ Insertion of Endotracheal Airway into Trachea, Via Natural or Artificial Opening (ICD-10-PCS; 2019-06-11)
PROC: 06HY33Z Insertion of Infusion Device into Lower Vein, Percutaneous Approach (ICD-10-PCS; 2019-06-11)
PROC: B54BZZA Ultrasonography of Right Lower Extremity Veins, Guidance (ICD-10-PCS; 2019-06-11)
PROC: 5A1D70Z Performance of Urinary Filtration, Intermittent, Less than 6 Hours Per Day (ICD-10-PCS; 2019-06-11)
PROC: 5A1D70Z Performance of Urinary Filtration, Intermittent, Less than 6 Hours Per Day (ICD-10-PCS; 2019-06-12)
PROC: 5A1D70Z Performance of Urinary Filtration, Intermittent, Less than 6 Hours Per Day (ICD-10-PCS; 2019-06-14)
PROC: 02HV33Z Insertion of Infusion Device into Superior Vena Cava, Percutaneous Approach (ICD-10-PCS; 2019-06-14)
PROC: B548ZZA Ultrasonography of Superior Vena Cava, Guidance (ICD-10-PCS; 2019-06-14)
PROC: 5A1D70Z Performance of Urinary Filtration, Intermittent, Less than 6 Hours Per Day (ICD-10-PCS; 2019-06-16)
PROC: 5A1D70Z Performance of Urinary Filtration, Intermittent, Less than 6 Hours Per Day (ICD-10-PCS; 2019-06-18)
PROC: 5A1D70Z Performance of Urinary Filtration, Intermittent, Less than 6 Hours Per Day (ICD-10-PCS; 2019-06-19)
PROC: 5A1D70Z Performance of Urinary Filtration, Intermittent, Less than 6 Hours Per Day (ICD-10-PCS; 2019-06-21)
PROC: 5A1D70Z Performance of Urinary Filtration, Intermittent, Less than 6 Hours Per Day (ICD-10-PCS; 2019-06-22)
PROC: 5A1D70Z Performance of Urinary Filtration, Intermittent, Less than 6 Hours Per Day (ICD-10-PCS; 2019-06-24)
DX: A41.9 Sepsis, unspecified organism (principal); J96.01 Acute respiratory failure with hypoxia; I21.4 Non-ST elevation (NSTEMI) myocardial infarction; N18.6 End stage renal disease; I50.23 Acute on chronic systolic (congestive) heart failure; G92 Toxic encephalopathy; I16.9 Hypertensive crisis, unspecified; I42.8 Other cardiomyopathies; E87.2 Acidosis; E87.1 Hypo-osmolality and hyponatremia; I13.2 Hypertensive heart and chronic kidney disease with heart failure and with stage 5 chronic kidney disease, or end stage renal disease; I47.2 Ventricular tachycardia; J93.9 Pneumothorax, unspecified; I27.20 Pulmonary hypertension, unspecified; E87.5 Hyperkalemia; D64.9 Anemia, unspecified; E78.1 Pure hyperglyceridemia; D63.8 Anemia in other chronic diseases classified elsewhere; I07.1 Rheumatic tricuspid insufficiency; E87.8 Other disorders of electrolyte and fluid balance, not elsewhere classified; J44.9 Chronic obstructive pulmonary disease, unspecified; E83.39 Other disorders of phosphorus metabolism; E83.52 Hypercalcemia; I25.2 Old myocardial infarction; Z78.1 Physical restraint status; Z95.810 Presence of automatic (implantable) cardiac defibrillator; Z99.2 Dependence on renal dialysis; Z79.899 Other long term (current) drug therapy
CPT/HCPCS: 36415; 36600; 71045; 76937; 78580; 80048; 80053; 80307; 80320; 82140; 82375; 82607; 82746; 82805; 82962; 83036; 83605; 83735; 83880; 83970; 84100; 84145; 84155; 84165; 84439; 84443; 84478; 84481; 84484; 85025; 87070; 87804; 92610; 93005; 93306; 94003; 94640; 97162; 97530; 99291; C1725; C9113; J0360; J0696; J1650; J1815; J1956; J2060; J2250; J2270; J2405; J2704; J2920; J3010; J3490; J7050; J7060; J7512; G0480